=== PATIENT | female | born 1995 | race Caucasian/White ===

== ENCOUNTER 2019-08-20 11:57 | Emergency (ER) | payer MEDICAID ==
[~2019-08-20] VITALS: Ht 162.6 cm; Wt 58.1 kg
[2019-08-20 12:08] VITALS: Ht 162.6 cm; Wt 58.1 kg
[2019-08-20 15:20] LABS: BASOPHIL % 0.6 % (0-2); PLATELET COUNT 180 x10^3mcL (130-400); RED CELL DISTRIBUTION WIDTH 13.7 % (11.5-14.5)
[2019-08-20 16:40] VITALS: BP 116/64
== END 2019-08-20 16:40 | disposition home or self-care (01) ==
LOC: ED 11:57
PROVIDERS: Emergency Medicine
DX: R53.1 Weakness (principal); R06.02 Shortness of breath; R00.2 Palpitations
CPT/HCPCS: 36415; Q0092